=== PATIENT | female | born 1965 | race Caucasian/White ===

== ENCOUNTER → 2016-06-05 | Day surgery (SDC) | payer OTHER, BC ==
[2016-06-03 13:34] VITALS: BMI 27.4
[~2016-06-05] MED LIST: DEXAMETHASONE SOD PHOSPHATE 4 MG/1 ML VIAL ONE; KETOROLAC TROMETHAMINE 30 MG/1 ML VIAL ONE; LACTATED RINGERS SOLUTION 1,000 ML IV SCH; MIDAZOLAM HCL 2 MG/2 ML SINGLE DOSE VIAL ONE; ONDANSETRON 4 MG/2 ML VIAL IVPUSH PRN; PROPOFOL 20 ML ONE; ROPIVACAINE HCL 0.5% 30ML VIAL ONE; SODIUM CHLORIDE 0.9% P/F 10 ML VIAL IJ ONE; ceFAZolin SODIUM 1 GM VIAL IVPB ONE; ceFAZolin SODIUM 1 GM VIAL ONE; oxyCODONE HCL 5 MG TABLET PO PRN
[2016-06-05 07:50] LABS: INR 1.36 (0.82-1.09); PROTHROMBIN TIME (PATIENT) 15.1 SEC (9.98-11.88)
--- NOTE | 2016-06-05 08:39 | HP ---
Satellite [facility] - Chief Complaint Chief Complaint: left knee pain/fx - Past Medical History Allergies/Adverse Reactions: Allergies Allergy/AdvReac Type Severity Reaction Status Date / Time No Known Allergies Allergy Verified 06/03/16 13:22 ...LMP: 05/12/16 - Current Medications Current Medications: Medication Instructions Recorded Fluticasone/Salmeterol [Advair Hfa 1 inh PO BID 06/03/16 115-21 Mcg Inhaler] Ibuprofen 600 mg PO Q4H 06/03/16 Prednisone [Deltasone -] 10 mg PO ASDIR 06/03/16 Triamterene/Hydrochlorothiazid 1 each PO DAILY 06/03/16 [Triamterene-Hctz 37.5-25 mg Cp] Oxycodone HCl 5 mg PO PRN PRN 06/05/16 Satellite Physical Exam - Physical Examination Vital Signs: Vital Signs Period Temp Pulse Resp BP Sys/Lomeli Pulse Ox Last 24 Hr 98.0 F 100 20 124/84 95 General Appearance: Well Nourished, Well Developed, Alert & Oriented x3 ENT: Clear Lung: Normal air movement Heart: Regular rate & rhythm Extremities: Other (left knee- + swelling, + ttp, decr rom, nvi xrays show displaced patella fx) Neurological: Intact Satellite Impression/Plan - Impression/Plan Impression: left patella fx Operative Procedure: left patella orif Date to be Performed: 06/05/16
--- NOTE | 2016-06-05 11:17 | OP ---
Operative Note - Note: Operative Date: 06/05/16 Pre-Operative Diagnosis: left patella fracture Operation: ORIF left patella, retinacular repair Implants: 2 x 4.0mm cannulated screws, 22 yokasta cerclage wire Surgeon: Jose Villela Cushion Filler: Mehdi Skinner Anesthesiologist/AUTO DEALERSHIP PORTER: Rhett Garcia Jr. Anesthesia: General Estimated Blood Loss (mls): 0 Drains, Volume Out (mls): 0 Blood Volume Replaced (mls): 0 Fluid Volume Replaced (mls): 1,000 Operative Report Dictated: Yes
[2016-06-05 12:22] VITALS: TEMP 98.7
--- NOTE | 2016-06-05 13:13 | OP ---
DATE OF OPERATION: 06/05/2016 PREOPERATIVE DIAGNOSIS: Left patellar fracture. POSTOPERATIVE DIAGNOSIS: Left patellar fracture. PROCEDURE: Left patella open reduction and internal fixation and retinacular repair. SURGEON: Pablo Nava MD DENTAL SCHEDULING COORDINATOR: CONRADO Mccoy; Rhett Garcia Jr., VIVI. ANESTHESIA: Left leg regional block. BLOOD LOSS: Minimal. BLOOD GIVEN: None. FLUID REPLACEMENT: 1000 mL. DRAINS: None. COMPLICATIONS: None. IMPLANTS: Two 4.0-mm cannulated screws and one 22-gauge cerclage wire. This patient is a 50-year-old female with a preoperative diagnosis of a displaced comminuted left patella fracture. After understanding the potential risks, complications, alternatives, and benefits to surgical versus nonsurgical treatment, the patient elected to undergo this procedure. The patient was brought to the operating room, peripheral IV placed, IV sedation given, 1 g of IV Ancef was given. Left leg regional block was performed. Left lower extremity was prepped and draped in sterile fashion, elevated, exsanguinated with Esmarch bandage, tourniquet inflated to 275 mmHg. A longitudinal incision was made with a number 10 scalpel blade. Subcutaneous hemostasis achieved with Bovie cautery. Dissection was done down to knee, patella, quadriceps tendon and patellar tendon. Hematoma was evacuated and the knee was copiously irrigated and washed out. The patient was seen to have a transverse fracture at approximately two-thirds of the way down the patella. The top fragment was 1 big piece in an excellent position. The bottom piece was comminuted but still in a good position, held together by the soft tissues. There were some other loose pieces, which I would put back later. The entire medial and lateral retinaculum were torn as well. The area was again copiously irrigated and washed out, the bony edges freshened up and cleaned with a curette. I then did a provisional reduction, held it together with bone tenacula and Kochers. X-rays were taken in the AP and lateral planes. X-ray showed that there was excellent mosque of the patellofemoral joint. The undersurface of the patella was congruent and the fragments were in good position. Therefore, under direct visualization in the standard fashion, I put in two 4.0-mm cannulated screws, 1st with a guidewire, maintaining compression, on one I used a washer, got excellent fixation and all the fracture fragments were held in place. AP, lateral and multiple obliques were taken and overall held together quite nicely. I then used FiberWire to piece together the loose fragments with their soft tissue attachments and repaired the entire medial and lateral retinaculum, helping to hold the patella together. Next, I put in a 22-gauge metal cerclage wire in the standard fashion through both screws in a [id number] fashion and used a formula bottler to tighten it up on the distal anterior aspect of the patella and was able to bend it, lock it in place and cut it. X-rays were taken before I cut it and overall documented excellent position of the cerclage wire. I could see that it was extremely tight, which was good. The area was copiously irrigated and washed out, final x-rays taken. I put the knee through a little range of motion, about 15 degrees, and there was no undue tension on the repair. A 2-0 Vicryl was used to close the deep dermal layer. Final skin reapproximation was done with a running subcuticular 3-0 V-Loc suture. We then used some supplemental nylon sutures every 2 inches to hold it together and supplement the PDS V-Loc. It was then washed and dried and covered with Steri-Strips, 4 x 4's, Webril, Moreno bandage, and she was put into a knee immobilizer in full extension. Total operative time was about 1 hour. There were no complications during the case. The patient tolerated the procedure quite well and was brought to the ambulatory recovery room in stable condition. PABLO NAVA M.D. [id number]
[2016-06-05 13:54] VITALS: BP 101/66; PULSE 97
== END | disposition home or self-care (01) ==
LOC: JASU-SURG 05:13
PROVIDERS: ATTEND Orthopaedic Surgery
PROC: 0QSF04Z Reposition Left Patella with Internal Fixation Device, Open Approach (ICD-10-PCS; principal; 2016-06-05 09:00)
DX: S82.042A Displaced comminuted fracture of left patella, initial encounter for closed fracture (principal); X58.XXXA Exposure to other specified factors, initial encounter; Y93.9 Activity, unspecified; Y92.9 Unspecified place or not applicable; Y99.9 Unspecified external cause status
CPT/HCPCS: 36415; 73562-TC-LT; 76000-TC; 84703; 85610; 94760

== ENCOUNTER 2018-05-11 05:16 | Day surgery (SDC) | payer OTHER, BC ==
[2018-05-06 17:57] VITALS: BMI 27.4
--- NOTE | 2018-05-11 11:26 | HP ---
Past Medical History - Primary Care Physician PCP:: Sundar Blandon - Admission Chief Complaint: 52yo P1 with menometrorrhagia and suspected endometrial polyp admitted for hysteroscopy, polypectomy, D&C. History of Present Illness: Irregular heavy menses. TVUS showed endometrial polyp and fibroids. History Source: Patient, Medical Record Limitations to Obtaining History: No Limitations - Past Medical History SOLUTIONS DELIVERY CONSULTANT: No: Alzheimer's, CVA, Dementia, Migraine, Multiple Sclerosis, Peripheral Neuropathy, Parkinson's, Seizure, Syncope, TIA, Vertigo, Other Cardiovascular: Yes: HTN Pulmonary: No: Asthma, Bronchitis, Cancer, COPD, O2 Dependent, Pneumonia, Previously Intubated, Pulmonary Embolus, Pulmonary Fibrosis, Sleep Apnea, Other Gastrointestinal: No: Ascites, Cancer, Constipation, Crohn's Disease, Diverticulitis, Diverticulosis, Esophageal Varices, Gastritis, GERD, GI Bleed, Hemorrhoids, Hiatal Hernia, Inflamatory Bowel Disease, Irritable Bowel Disease, Pancreatitis, Peptic Ulcer Disease, Ulcerative Colitis, Other Hepatobiliary: No: Cirrhosis, Cholelithiasis, Cholecystitis, Choledocholithiasis , Hepatitis A, Hepatitis B, Hepatitis C, Other Renal/: No: Renal Failure, Renal Inusuff, BPH, Cancer, Hematuria, Hemodialysis , Neurogenic Bladder, Renal Calculi, UTI, Other Reproductive: No: Ectopic , Endometriosis, Fibroids, PID, Polycystic Ovary Syndrome, Postmenopausal, Other ...: 2 ...Para: 1 (C/S) ...Spon : 1 Heme/Onc: No: Anemia, B12 Deficiency, Bleeding Disorder, Cancer, Current Chemotherapy, Current Radiation Therapy, Hemochromatosis, Hypercoaguable State, Myeloproliferative Synd, Sickle Cell Disease, Sickle Cell Trait, Thrombocytopenia, Other Infectious Disease: No: AIDS, C-Diff, Herpes Zoster, HIV, MRSA, STD's, Tuberculosis, VREF, Other Psych: No: Addictions, Anxiety, Bipolar, Depression, Panic, Psychosis, Schizophrenia, Other Musculoskeletal: No: Bursitis, Chronic low back pain, Hemiparesis, Hemiplegia, Osteoarthritis, Paraplegia, Other Rheumatology: No: Fibromyalgia, Gout, Lupus, Rheumatoid Arthritis, Sarcoidosis, Vasculitis, Other ENT: No: Allergic Rhinitis, Sinusitis, Other Endocrine: No: [place]'s Disease, Nallely's Disease, Diabetes Insipidus, Diabetes Mellitus, Hyperparathyroidism, Hyperthyroidism, Hypothyroidism, Osteopenia, SIADH, Other Dermatology: No: Basal Cell, Cellulitis, Eczema, Melanoma, Psoriasis, Squamous Cell, Other - Past Surgical History Past Surgical History: Yes: , Tonsillectomy Hx Myomectomy: No Hx Transabdominal Cerclage: No Additional Surgical History: Fx of left knee - Smoking History Smoking history: Former smoker Have you smoked in the past 12 months: No If you are a former smoker, when did you quit?: 2005 - Alcohol/Substance Use Hx Alcohol Use: No History of Substance Use: reports: None - Social History Usual Living Arrangement: Yes: With Significant Other ADL: Independent History of Recent Travel: No Home Medications - Allergies Allergies/Adverse Reactions: Allergies Allergy/AdvReac Type Severity Reaction Status Date / Time No Known Allergies Allergy Verified 06/03/16 13:22 - Home Medications Home Medications: Ambulatory Orders Fluticasone/Salmeterol [Advair Hfa 115-21 Mcg Inhaler] 1 inh PO BID PRN Triamterene/Hydrochlorothiazid [Triamterene-Hctz 37.5-25 mg Cp] 1 each PO DAILY 06/03/16 Family Disease History - Family Disease History Family Disease History: Other: Mother (HTN) Review of Systems - Review of Systems Constitutional: reports: No Symptoms Eyes: reports: No Symptoms HENT: reports: No Symptoms Neck: reports: No Symptoms Cardiovascular: reports: No Symptoms Respiratory: reports: No Symptoms Gastrointestinal: reports: No Symptoms Genitourinary: reports: No Symptoms Breasts: reports: No Symptoms Reported Musculoskeletal: reports: No Symptoms Integumentary: reports: No Symptoms Neurological: reports: No Symptoms Endocrine: reports: No Symptoms Hematology/Lymphatic: reports: No Symptoms Psychiatric: reports: No Symptoms Pain Intensity: 0 Physical Exam-INSTALLATION AND SERVICE TECHNICIAN Vital Signs: Vital Signs Temperature 98.1 F 05/11/18 11:02 Pulse Rate 77 05/11/18 11:02 Respiratory Rate 20 05/11/18 11:02 Blood Pressure 121/78 05/11/18 11:02 O2 Sat by Pulse Oximetry (%) 100 05/11/18 11:02 Constitutional: Yes: Well Nourished, No Distress, Calm Eyes: Yes: WNL, Conjunctiva Clear, EOM Intact HENT: Yes: WNL, Atraumatic, Normocephalic Neck: Yes: WNL, Supple, Trachea Midline Cardiovascular: Yes: WNL, Regular Rate and Rhythm Respiratory: Yes: WNL, Regular, CTA Bilaterally Gastrointestinal: Yes: WNL, Normal Bowel Sounds, Soft ...Rectal Exam: Yes: Deferred Renal/: Yes: WNL External Genitalia: Yes: Normal Internal Exam Deferred: No Vaginal Exam: Yes: Normal Cervix: Yes: Normal Uterus: Yes: Normal, Freely Moveable Adnexa: Normal: Left, Right Musculoskeletal: Yes: WNL Extremities: Yes: WNL Edema: No Integumentary: Yes: WNL Neurological: Yes: WNL, Alert, Oriented ...Motor Strength: WNL Psychiatric: Yes: WNL, Alert, Oriented Imaging - Results Ultrasound: Report Reviewed Assessment/Plan 52yo P1 with menometrorrhagia and suspected endometrial polyp admitted for hysteroscopy, polypectomy, D&C. We had discussed the risks, benefits, alternatives of surgery at length including but not limited to infection, bleeding, scarring, perforation, amenorrhea, infertility, hysterectomy, etc. The pt verbalized understanding and requested to proceed with surgery. I emphasized that all surgeries have risks and no guarantees can be provided
[2018-05-11] MEDS ORDERED: MIDAZOLAM HCL 2 MG/2 ML SINGLE DOSE VIAL ONE (13:05)
[2018-05-11] MEDS ORDERED: PROPOFOL 20 ML ONE ×2 (13:06→13:20)
[2018-05-11] MEDS ORDERED: SUCCINYLCHOLINE CHLORIDE 200 MG/10 ML VIAL ONE (13:07)
[2018-05-11] MEDS ORDERED: KETOROLAC TROMETHAMINE 30 MG/1 ML VIAL ONE (13:22)
[2018-05-11] MEDS ORDERED: DEXAMETHASONE SOD PHOSPHATE 4 MG/1 ML VIAL ONE ×2 (13:22→13:36)
[2018-05-11] MEDS ORDERED: GLYCOPYRROLATE 0.2 MG/1 ML VIAL ONE (13:36)
[2018-05-11] MEDS ORDERED: LIDOCAINE HCL/PF 2% SDV 5ML VIAL ONE (13:36)
[2018-05-11] MEDS ORDERED: ONDANSETRON 4 MG/2 ML VIAL IVPUSH PRN (14:02)
[2018-05-11] MEDS ORDERED: LACTATED RINGERS SOLUTION 1,000 ML IV SCH (14:15)
[2018-05-11 14:46] VITALS: TEMP 97.4
[2018-05-11 15:43] VITALS: BP 111/75; PULSE 65
--- NOTE | 2018-05-12 20:37 | OP ---
Operative Note - Note: Operative Date: 05/11/18 Pre-Operative Diagnosis: Menorrhagia, uterine polyp Operation: Hysteroscopy, polypectomy, D&C Findings: Normal uterine cavity. Large uterine polyp in right cornua. Post-Operative Diagnosis: Same as Pre-op Surgeon: Sudnar Blandon Anesthesiologist/TYPESETTING MACHINE TENDER: Mata Garrett Anesthesia: General Specimens Removed: Endometrial polyp, uterine curettings Estimated Blood Loss (mls): 10 Blood Volume Replaced (mls): 0 Fluid Volume Replaced (mls): 200 Operative Report Dictated: Yes
--- NOTE | 2018-05-13 09:50 | PATH ---
Surgical Pathology Report Patient Name: CARLEEN ELIZABETH [facility]. Rec. #: [id number] /Age/Gender: 1965 (Age: 52) / F Account: [id number] Location: [facility] SURGICAL Taken: 05/11/2018 Received: 05/12/2018 Reported: 05/13/2018 Physicians: Sundar Blandon M.D. Specimen(s) Received A: ENDOMETRIAL CURETTINGS B: ENDOMETRIAL POLYP Clinical History Endometrial polyp, irregular menstruation Final Diagnosis A. ENDOMETRIAL CURETTINGS, DILATION AND CURETTAGE: FRAGMENTS OF ENDOMETRIAL POLYP, SCANT WEAKLY PROLIFERATIVE ENDOMETRIUM, SUPERFICIAL MYOMETRIUM, AND SCANT CERVICAL TISSUE. B. ENDOMETRIAL POLYP, POLYPECTOMY: FRAGMENTS OF ENDOMETRIAL POLYP, SUPERFICIAL MYOMETRIUM, AND BENIGN CERVICAL TISSUE. Electronically Signed Ruthy Grider M.D. Gross Description A. Received in formalin labeled "endometrial curetting," is a 1.0 x 0.7 x 0.2 cm aggregate of monique soft tissue fragments. The formalin is filtered and the specimen is entirely submitted in one cassette. B. Received in formalin labeled "endometrial polyp," is a 1.5 x 1.0 x 0.2 cm aggregate of monique soft tissue fragments. The formalin is filtered and the specimen is entirely submitted in one cassette. /05/12/2018 saudi05/12/2018
--- NOTE | 2018-05-26 15:42 | OP ---
DATE OF OPERATION: 05/11/2018 PREOPERATIVE DIAGNOSIS: A 52-year-old female with menorrhagia and uterine polyps. POSTOPERATIVE DIAGNOSIS: A 52-year-old female with menorrhagia and uterine polyps. PROCEDURE: Hysteroscopy, polypectomy, dilation and curettage. SURGEON: Sundar Blandon MD ANESTHESIOLOGIST: Mata Garrett MD ANESTHESIA: General. COMPLICATIONS: None. ESTIMATED BLOOD LOSS: 10 mL. IV FLUIDS: 200 mL. PATHOLOGY: Endometrial polyp, uterine curettings. PROCEDURE: The patient was met preoperatively. Risks, benefits, and alternatives of surgery were discussed in detail. All questions were answered. The patient was brought to the OR with the IV running. She was placed on the surgical table in the supine position. The general anesthesia was achieved without difficulty. The patient was placed in a dorsal lithotomy position using adjustable Darion stirrups. She was prepped and draped in the usual sterile fashion. A weighted speculum was introduced inside the vagina, with good visualization of the cervix. The anterior cervical lip was grasped with a single-tooth tenaculum. The cervix was dilated to accommodate a size 21 Barillas dilator. A hysteroscope was introduced through the cervical canal into the uterine cavity. Visualization of the uterine cavity revealed a large polyp in the right cornual region. A resectoscope was used to completely excise the polyp. Once the polyp was excised, the remaining uterine cavity appeared to be within normal limits. The hysteroscope was removed. Uterine curettage was performed using a sharp curette. All of the instruments were then removed from the patient. Good hemostasis was confirmed. Sponge, lap, needle, and instrument counts were correct. The patient was returned to supine position and transferred to recovery room awake and in stable condition. Earl [id number]
== END 2018-05-11 15:45 | disposition home or self-care (01) ==
LOC: JASU-SURG 05:16
PROVIDERS: ATTEND Obstetrics & Gynecology
PROC: 0UJD8ZZ Inspection of Uterus and Cervix, Via Natural or Artificial Opening Endoscopic (ICD-10-PCS; 2018-05-11)
PROC: 0UB97ZX Excision of Uterus, Via Natural or Artificial Opening, Diagnostic (ICD-10-PCS; principal; 2018-05-11 12:00)
PROC: 0UDB7ZX Extraction of Endometrium, Via Natural or Artificial Opening, Diagnostic (ICD-10-PCS; 2018-05-11 12:00)
DX: N92.0 Excessive and frequent menstruation with regular cycle (principal)
CPT/HCPCS: 36415; 84703; 86850; 86900; 86901; 88305-TC; 94760